=== PATIENT | female | born 1990 | race Caucasian/White ===

== ENCOUNTER 2017-12-11 09:56 | Emergency (ER) | payer SELFPAY ==
[~2017-12-11] VITALS: Ht 175.3 cm; Wt 60.0 kg
[2017-12-11 10:05] VITALS: BP 96/51; PULSE 75; RESP 16; TEMP 97.7; O2SAT 99
[2017-12-11] MEDS ORDERED: TETANUS/DIPHTHERIA TOXOID ADULT 0.5 ML VIAL IM ONE (12:30)
[2017-12-11] MEDS ORDERED: LIDOCAINE HCL 1% PF 30 ML VIAL INFIL ONE (12:30)
[2017-12-11] MEDS ORDERED: IBUPROFEN 600 MG TAB PO ONE (12:30)
--- NOTE | 2017-12-11 13:05 | PD ---
HPI Chief Complaint: Laceration/Skin Injury Time Seen by Provider: 12:26 Travel History International Travel<30 days: No Contact w/Intl Traveler<30days: No Traveled to known affect area: No History of Present Illness HPI 26-year-old female presents to the ED for evaluation of left lower extremity laceration. Sustained just before arrival when the patient walked into the corner of a glass coffee table. She states that the table "just shattered." She denies numbness, tingling, weakness, limitations to range of motion of the extremity. She is unsure of her last tetanus immunization. No treatment attempted at home. [facility] Past Medical History Diminished Hearing: No Tetanus Vaccination: Unknown ?: Not Social History Alcohol Use: No Tobacco Use: No Substance Use: No Allergies-Medications (Allergen,Severity, Reaction): Coded Allergies: Penicillins (Verified Allergy, Unknown, 12/11/17) cephalexin (Verified Allergy, Unknown, 12/11/17) morphine (Verified Allergy, Unknown, 12/11/17) Reported Meds & Prescriptions Reported Meds & Active Scripts Active No Active Prescriptions or Reported Medications Review of Systems Except as stated in HPI: all other systems reviewed are Neg Physical Exam Narrative GENERAL: Well-nourished, well-developed anxious white female in no acute distress. SKIN: Focused skin assessment warm/dry. There is a 3.5 cm laceration of the anterolateral cho. There is a 1.5 cm laceration of the medial anterior cho. No visible debris. No active bleeding. HEAD: Normocephalic. EYES: No scleral icterus. No injection or drainage. NECK: Supple, trachea midline. No JVD or lymphadenopathy. CARDIOVASCULAR: Regular rate and rhythm without murmurs, gallops, or rubs. RESPIRATORY: Breath sounds equal bilaterally. No accessory muscle use. GASTROINTESTINAL: Abdomen soft, non-tender, nondistended. MUSCULOSKELETAL: No cyanosis, or edema. FOCUSED LEFT LOWER EXTREMITY EXAM: 2+ DP pulse. Patient retains full, active, painless ROM of the extremity. 5/5 strength in all muscle groups. Neurovascularly intact distally. BACK: Nontender without obvious deformity. No CVA tenderness. Data Data Last Documented VS Vital Signs Date Time Temp Pulse Resp B/P (MAP) Pulse Ox O2 Delivery O2 Flow Rate FiO2 12/11/17 10:05 97.7 75 16 96/51 (66) 99 Orders Orders Tibia/Fibula (Ap/Lat) (12/11/17 12:28) Lidocaine Pf 1% Inj (Xylocaine-Mpf 1% In (12/11/17 12:30) Tetanus/Diphtheria Tox Adult (Tetanus/Di (12/11/17 12:30) Ibuprofen (Motrin) (12/11/17 12:30) MDM Medical Decision Making Medical Screen Exam Complete: Yes Emergency Medical Condition: Yes Differential Diagnosis Laceration versus abrasion versus need for tetanus immunization versus other Narrative Course 26-year-old female presents to the ED for evaluation of left lower extremity laceration. Sustained just before arrival when the patient walked into the corner of a glass coffee table. She states that the table "just shattered." She denies numbness, tingling, weakness, limitations to range of motion of the extremity. She is unsure of her last tetanus immunization. There is a 3 cm laceration on the lateral aspect of the anterior cho. There is a 1.5 cm laceration on the medial aspect of the anterior cho. No active bleeding or visible foreign body. X-ray reveals no evidence of foreign body. Laceration repair was performed. Please see my procedure note for details. Tetanus immunization was updated. The patient was provided detailed wound instructions. She is instructed to monitor for signs of infection, return should these occur. Suture removal in 7-10 days. She is stable and discharged home. Procedures Procedure Narrative LACERATION LOCATION: Medial left anterior cho LENGTH: 1.5 cm NUMBER OF STITCHES/ALEK: 2 REPAIR: The area of the laceration was prepped with Betadine and sterilely draped. The laceration was infiltrated with 1% lidocaine. The wound was copiously irrigated and explored without evidence of foreign body, tendon injury or neurovascular injury. The wound was closed using 4-0 Prolene. This was a single layer repair. A sterile dressing was applied. The patient was advised to keep the dressing clean and dry. Patient tolerated the procedure well. LACERATION LOCATION: Lateral left anterior cho LENGTH: 3.5 NUMBER OF STITCHES/ALEK: 5 REPAIR: The area of the laceration was prepped with Betadine and sterilely draped. The laceration was infiltrated with 1% lidocaine. The wound was copiously irrigated and explored without evidence of foreign body, tendon injury or neurovascular injury. The wound was closed using 4-0 Prolene. This was a single layer repair. A sterile dressing was applied. The patient was advised to keep the dressing clean and dry. Patient tolerated the procedure well. Diagnosis Primary Impression: Laceration of lower leg, left Qualified Codes: S81.812A - Laceration without foreign body, left lower leg, initial encounter Additional Impression: Immunization, tetanus toxoid Referrals: Primary Care Physician Additional Instructions: Rest, hydrate. Do not change the dressing for 24 hours. You may shower normally. Do not submerge the wound. After bathing pat of wound dry. Allow the wound to air dry for 10-15 minutes. Apply a thin layer of antibiotic ointment and a clean, dry dressing. Utilize [id number] pain medications, as described on the label, as needed. Suture removal in 7-10 days. Monitor for signs of infection as discussed, return should they occur. Follow-up with your primary care provider. Return to the ED for any urgent or emergent medical condition. Scripts No Active Prescriptions or Reported Meds Disposition: 01 DISCHARGE HOME Condition: Stable Vanessa Santiago Dec 11, 2017 13:05
--- NOTE | 2017-12-11 15:27 | RADRPT ---
EXAM DATE/TIME: 12/11/2017 13:43 [facility] COMPARISON: No previous studies available for comparison. INDICATIONS : Foreign body, fell agasinst glass table. MEDICAL HISTORY : None. SURGICAL HISTORY : None. ENCOUNTER: Initial ACUITY: 1 day PAIN SCORE: 10/10 LOCATION: Left tib/fib FINDINGS: Soft tissue laceration and small radiopaque foreign body within the laceration possibly glass. No fr acture CONCLUSION: Laceration with small foreign body. Van Lopez MD FACR on December 11, 2017 at 15:24 Board Certified Radiologist. This report was verified electronically.
== END 2017-12-11 14:33 | disposition home or self-care (01) ==
LOC: NEPK 09:56
DX: S81.812A Laceration without foreign body, left lower leg, initial encounter (principal); W25.XXXA Contact with sharp glass, initial encounter; W22.03XA Walked into furniture, initial encounter; Z23 Encounter for immunization
CPT/HCPCS: 12002; 73590; 90471; 90714